=== PATIENT | male | born 1995 | race Two or more races ===

== ENCOUNTER 2021-10-03 01:07 | Emergency (ER) | payer BC ==
[~2021-10-03] VITALS: Ht 170.2 cm; Wt 77.1 kg
[2021-10-03 02:30] VITALS: BP 129/82
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
--- NOTE | 2021-10-03 02:52 | NUR ---
ENGINEERING CONSULTANT AT PT'S BEDSIDE
--- NOTE | 2021-10-03 03:00 | NUR ---
WOUND CARE DONE TO PT'S RIGHT HAND
[2021-10-03] MEDS ORDERED: LIDOCAINE 2% 20 ML MDV ONE (03:11)
[2021-10-03] MEDS ORDERED: CEPH500C2 PO (04:10)
--- NOTE | 2021-10-03 04:18 | NUR ---
Patient discharged to home in stable condition. Rx and Written and verbal after care instructions given. Patient verbalizes understanding of instruction.
== END 2021-10-03 04:20 | disposition home or self-care (01) ==
LOC: ER 01:19
DX: S61.212A Laceration without foreign body of right middle finger without damage to nail, initial encounter (principal); S61.214A Laceration without foreign body of right ring finger without damage to nail, initial encounter; S61.210A Laceration without foreign body of right index finger without damage to nail, initial encounter; Z60.2 Problems related to living alone; W25.XXXA Contact with sharp glass, initial encounter; Y93.89 Activity, other specified; Y92.89 Other specified places as the place of occurrence of the external cause; Y99.8 Other external cause status
CPT/HCPCS: 12002; 73130; 99283; J3490

== ENCOUNTER 2021-10-11 00:55 | Emergency (ER) | payer BC ==
[~2021-10-11] VITALS: Ht 172.7 cm; Wt 81.6 kg
[~2021-10-11 00:55] MED LIST: CEPH500C2 PO
--- NOTE | 2021-10-11 01:00 | NUR ---
CALLED TO TRIAGE, NO RESPONSE
[2021-10-11 01:45] VITALS: BP 128/84
== END 2021-10-11 01:57 | disposition home or self-care (01) ==
LOC: ER 00:55
DX: S63.610A Unspecified sprain of right index finger, initial encounter (principal); Z60.2 Problems related to living alone; W22.8XXA Striking against or struck by other objects, initial encounter; Y93.89 Activity, other specified; Y92.89 Other specified places as the place of occurrence of the external cause; Y99.8 Other external cause status

== ENCOUNTER 2021-12-12 10:28 | Emergency (ER) | payer BC ==
[~2021-12-12] VITALS: Ht 170.2 cm; Wt 80.7 kg
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
--- NOTE | 2021-12-12 11:55 | NUR ---
WAITER/WAITRESS FORMAL AT BEDSIDE
[2021-12-12] MEDS ORDERED: TDAP [DIPH/PERTUSSIS/TET] 0.5 ML VIAL IM ONE ×2 (11:57→12:00)
[2021-12-12] MEDS ORDERED: ACETAMINOPHEN 325 MG TABLET ONE (11:57)
[2021-12-12] MEDS ORDERED: ACETAMINOPHEN 325 MG TABLET PO ONE (12:00)
[2021-12-12] MEDS ORDERED: HYDR-4209 PO (12:57)
[2021-12-12] MEDS ORDERED: IBUP-1955 PO (12:57)
[2021-12-12] MEDS ORDERED: BACITRACIN ZINC OINT PACKET 1 EA PACKET TP ONE (13:00)
[2021-12-12] MEDS ORDERED: KETOROLAC TROMETHAMINE INJ 30 MG/ML VIAL IM ONE (13:00)
[2021-12-12] MEDS ORDERED: KETOROLAC TROMETHAMINE INJ 30 MG/ML VIAL ONE (13:03)
--- NOTE | 2021-12-12 13:08 | NUR ---
Patient discharged to home in stable condition. Written and verbal after care instructions given. Patient verbalizes understanding of instruction.
[2021-12-12 13:09] VITALS: BP 130/80
== END 2021-12-12 13:09 | disposition home or self-care (01) ==
LOC: ER 10:36
DX: S52.124A Nondisplaced fracture of head of right radius, initial encounter for closed fracture (principal); S20.211A Contusion of right front wall of thorax, initial encounter; S50.311A Abrasion of right elbow, initial encounter; M25.551 Pain in right hip; Z60.2 Problems related to living alone; Z79.899 Other long term (current) drug therapy; W11.XXXA Fall on and from ladder, initial encounter; Y93.89 Activity, other specified; Y92.89 Other specified places as the place of occurrence of the external cause; Y99.8 Other external cause status
CPT/HCPCS: 29105; 71045; 73080; 73130; 73502; 90471; 90715; 96372; 99284; J1885